=== PATIENT | female | born 1945 | race Caucasian/White ===

== ENCOUNTER 2017-07-03 11:24 | Emergency (ER) | payer SELFPAY ==
[~2017-07-03] VITALS: Ht 152.4 cm; Wt 56.0 kg
[2017-07-03] MEDS ORDERED: EPIPEN 2-P0.3 MG/0.3 (11:36)
[2017-07-03 12:35] VITALS: BP 155/74
[2017-07-03] MEDS ORDERED: ZOVIRAX52 TOP (12:35)
[2017-07-03] MEDS ORDERED: FAMVIR500 MG PO (12:35)
== END 2017-07-03 12:35 | disposition home or self-care (01) | DRG 596 ==
LOC: ED 11:24
DX: B02.9 Zoster without complications (principal); J45.909 Unspecified asthma, uncomplicated